=== PATIENT | male | born 1990 | race Two or more races ===

== ENCOUNTER 2017-03-07 13:08 | Emergency (ER) | payer SELFPAY ==
[2017-03-07 14:51] VITALS: BP 126/74
== END 2017-03-07 14:52 | disposition home or self-care (01) ==
LOC: ED 13:08
DX: K08.89 Other specified disorders of teeth and supporting structures (principal); F17.210 Nicotine dependence, cigarettes, uncomplicated
CPT/HCPCS: J0696; J2001